=== PATIENT | male | born 1970 | race Hispanic/Latino ===

== ENCOUNTER 2020-08-09 12:46 | Inpatient (IN) | payer MEDICAID ==
[~2020-08-09] VITALS: Ht 167.6 cm; Wt 63.1 kg
[2020-08-09] MEDS ORDERED: SODIUM CHLORIDE 0.9% 1000ML 1,000 ML IV ONE (13:04)
[2020-08-09] MEDS ORDERED: ZOSYN 3.375GM+NS 50ML 50 ML IV ONE (13:04)
[2020-08-09 13:28] LABS: BASOPHILS % (AUTO) 0.6 % (0.0-5.0); EOSINOPHILS % (AUTO) 9.7 % (0.0-8.0); LYMPHOCYTES % (AUTO) 35.9 % (21.0-51.0); MEAN CORPUSCULAR HGB CONC 32.9 g/dL (32.0-36.0); MEAN CORPUSCULAR VOLUME 85.4 fL (79-99); MONOCYTES % (AUTO) 7.4 % (3.0-13.0); NEUTROPHILS % (AUTO) 46.1 % (40.0-77.0); PLATELET COUNT (AUTO) 334 K/uL (130-400); RED BLOOD CELL COUNT(AUTO) 3.28 MIL/uL (4.50-6.20); RED CELL DISTRIBUTION WIDTH 15.1 % (11.0-15.5); WHITE BLOOD COUNT (AUTO) 9.9 K/uL (4.8-10.8)
[2020-08-09] MEDS ORDERED: DEXTROSE 50%-WATER 50 ML DISP.SYRIN IV PRN ×2 (14:15→15:00)
[2020-08-09] MEDS ORDERED: GLUCAGON 1MG KIT 1 MG ML IM PRN ×2 (14:15→15:00)
[2020-08-09] MEDS ORDERED: ACETAMINOPHEN 325 MG TAB PO PRN (14:15)
[2020-08-09] MEDS ORDERED: ONDANSETRON HCL 4 MG/2 ML VIAL IVP PRN (14:15)
[2020-08-09 14:16] LABS: INR 0.92 (0.85-1.15); PARTIAL THROMBOPLASTIN TIME 28.4 SEC (26.3-35.5)
[2020-08-09 14:19] LABS: ALANINE AMINOTRANSFERASE 30 U/L (12-78); ALBUMIN 2.8 g/dL (3.5-5.0); ASPARTATE AMINOTRANSFERASE 19 U/L (10-37); BILIRUBIN,TOTAL 0.2 mg/dL (0.2-1.0); CARBON DIOXIDE 30 mmol/L (21-32); CHLORIDE 95 mmol/L (101-111); CREATINE KINASE, TOTAL 108 U/L (21-232); CREATININE 1.1 mg/dL (0.5-1.5); GLOMERULAR FILTR. RATE CALC 76 mL/min (>60); MYOGLOBIN 49 ng/mL (10-92); POTASSIUM 4.3 mmol/L (3.5-5.1); SODIUM SERUM 132 mmol/L (136-145); TOTAL PROTEIN, SERUM 7.7 g/dL (6.0-8.3); TROPONIN I < 0.04 ng/mL (0.00-0.06); UREA NITROGEN, BLOOD 22 mg/dL (7-18)
[2020-08-09 14:24] LABS: GLUCOSE,RANDOM 412 mg/dL (70-105)
[2020-08-09] MEDS ORDERED: INSULIN HUMULIN R 100 UNIT/ML 3ML ONE (14:41)
[2020-08-09] MEDS ORDERED: MORPHINE SULFATE 2 MG/ML 1ML SYG ONE (14:56)
[2020-08-09 15:54] LABS: APPEARANCE,URINE Clear (CLEAR); BILIRUBIN,URINE Negative (NEGATIVE); COLOR,URINE Yellow (YELLOW); GLUCOSE, URINE (UA) >=1000 mg/dL (NEGATIVE); KETONES,URINE Negative (NEGATIVE); LEUKOCYTE ESTERASE ,URINE Negative (NEGATIVE); NITRATE,URINE Negative (NEGATIVE); OCCULT BLOOD,URINE Negative (NEGATIVE); PROTEIN,URINE POS 1+ mg/dL (NEGATIVE); UROBILINOGEN,URINE 0.2 mg/dL (0.2-1.0)
[2020-08-09 16:14] LABS: BACTERIA,URINE Rare /HPF (None Seen); RBC,URINE 0-1 /HPF (0-1); SQUAMOUS EPITHELIAL CELL,UR Rare /HPF (0-2); WBC,URINE 0-1 /HPF (0-1)
[2020-08-09] MEDS: INSULIN HUMULIN R 100 UNIT/ML 3ML SQ SCH ×2 (16:30→20:15)
[2020-08-09] MEDS ORDERED: INSULIN HUMULIN R 100 UNIT/ML 3ML SQ SCH (16:30)
[2020-08-09] MEDS: VANCOMYCIN 1GM+NS 250ML 250 ML IV SCH (17:36)
[2020-08-09 18:26] VITALS: BP 100/70
[2020-08-09] MEDS: FAMOTIDINE 20MG TAB 20 MG TAB PO SCH (20:11)
[2020-08-09] MEDS: ACETAMINOPHEN-CODEINE 300/30MG TAB PO PRN (20:15)
[2020-08-09] MEDS: ZOSYN 3.375GM+NS 50ML 50 ML IV SCH (20:15)
[2020-08-09 20:44] VITALS: BP 97/54
[2020-08-09] MEDS: MORPHINE SULFATE 2 MG/ML 1ML SYG IVP PRN (22:11)
[2020-08-10] VITALS (7 sets, daily range): BP systolic 102–145; BP diastolic 62–88
[2020-08-10] MEDS: MORPHINE SULFATE 2 MG/ML 1ML SYG IVP PRN ×4 (02:58→23:09)
[2020-08-10] MEDS: ZOSYN 3.375GM+NS 50ML 50 ML IV SCH ×3 (04:10→21:22)
[2020-08-10 06:14] LABS: EOSINOPHILS % (AUTO) 8.9 % (0.0-8.0); HEMATOCRIT 28.9 % (42-54); LYMPHOCYTES % (AUTO) 24.8 % (21.0-51.0); MEAN CORPUSCULAR HEMOGLOBIN 28.4 pg (27.0-33.0); MEAN CORPUSCULAR HGB CONC 33.2 g/dL (32.0-36.0); MEAN CORPUSCULAR VOLUME 85.5 fL (79-99); MONOCYTES % (AUTO) 7.5 % (3.0-13.0); NEUTROPHILS % (AUTO) 57.5 % (40.0-77.0); PLATELET COUNT (AUTO) 336 K/uL (130-400); RED BLOOD CELL COUNT(AUTO) 3.38 MIL/uL (4.50-6.20); RED CELL DISTRIBUTION WIDTH 15.2 % (11.0-15.5); WHITE BLOOD COUNT (AUTO) 11.5 K/uL (4.8-10.8)
[2020-08-10] MEDS: INSULIN HUMULIN R 100 UNIT/ML 3ML SQ SCH ×4 (06:18→21:00)
[2020-08-10 07:00] LABS: CREATININE 0.9 mg/dL (0.5-1.5); POTASSIUM 4.7 mmol/L (3.5-5.1)
[2020-08-10] MEDS: ACETAMINOPHEN-CODEINE 300/30MG TAB PO PRN ×2 (09:48→21:21)
[2020-08-10] MEDS: FAMOTIDINE 20MG TAB 20 MG TAB PO SCH ×2 (09:49→21:20)
[2020-08-10] MEDS: ENOXAPARIN SODIUM 30 MG/0.3 ML SQ SCH (09:50)
[2020-08-10] MEDS: VANCOMYCIN 1GM+NS 250ML 250 ML IV SCH (12:26)
[2020-08-10 13:10] LABS: HEMOGLOBIN A1C 9.5 % (4.0-6.0)
[2020-08-10] MEDS ORDERED: VANCOMYCIN PROTOCOL PER PHARMACY IV SCH (17:45)
[2020-08-10 17:50] LABS: THYROID STIMULATING HORMONE 7.14 uIU/mL (0.36-3.74)
--- NOTE | 2020-08-10 18:04 | NUR ---
cm note met with patient and states resides at home with mother, rt kang, and now with Lt foot ulcer/gangrene/ suspect osteomyelitis. pt with hx of pt uses primarily w/c , states no other dme. has provider 4 1/2hrs daily. dc plan is back home at me. discussed poss snf referral. pt states not sure if he wants to go to any snf. Addendum: 08/10/20 at 1810 by KRUPA PUGH CM Amended: Links added.
[2020-08-10] MEDS ORDERED: VANCOMYCIN 2 GM in SODIUM CHLORIDE 0.9% 500ML 500 ML IV SCH (18:12)
[2020-08-10] MEDS ORDERED: GABA-529 PO (22:10)
[2020-08-10] MEDS ORDERED: LINA5TAB PO (22:12)
[2020-08-10] MEDS ORDERED: LEVO175T9 PO (22:12)
[2020-08-10] MEDS ORDERED: CLOP75TA14 PO (22:13)
[2020-08-10] MEDS ORDERED: DULO60CA64 PO (22:13)
[2020-08-10] MEDS ORDERED: DOCU100C33 PO (22:14)
[2020-08-10] MEDS ORDERED: ASPI-1197 PO (22:15)
[2020-08-10] MEDS ORDERED: PANT40TA54 PO (22:15)
[2020-08-11] VITALS (25 sets, daily range): BP systolic 104–142; BP diastolic 58–74
[2020-08-11] MEDS: ZOSYN 3.375GM+NS 50ML 50 ML IV SCH ×4 (04:29→21:14)
[2020-08-11] MEDS: MORPHINE SULFATE 2 MG/ML 1ML SYG IVP PRN ×3 (04:30→21:14)
[2020-08-11 05:09] LABS: BASOPHILS % (AUTO) 0.8 % (0.0-5.0); EOSINOPHILS % (AUTO) 8.1 % (0.0-8.0); HEMATOCRIT 32.8 % (42-54); LYMPHOCYTES % (AUTO) 38.6 % (21.0-51.0); MEAN CORPUSCULAR HEMOGLOBIN 27.9 pg (27.0-33.0); MEAN CORPUSCULAR HGB CONC 31.7 g/dL (32.0-36.0); MEAN CORPUSCULAR VOLUME 87.9 fL (79-99); MONOCYTES % (AUTO) 6.3 % (3.0-13.0); NEUTROPHILS % (AUTO) 45.9 % (40.0-77.0); PLATELET COUNT (AUTO) 390 K/uL (130-400); RED BLOOD CELL COUNT(AUTO) 3.73 MIL/uL (4.50-6.20); RED CELL DISTRIBUTION WIDTH 15.5 % (11.0-15.5); WHITE BLOOD COUNT (AUTO) 11.9 K/uL (4.8-10.8)
[2020-08-11 05:33] LABS: CREATININE 0.9 mg/dL (0.5-1.5)
[2020-08-11] MEDS: INSULIN HUMULIN R 100 UNIT/ML 3ML SQ SCH ×4 (07:30→21:22)
--- NOTE | 2020-08-11 07:45 | NUR ---
ASSESSMENT PT AAOX4 IN BED AND VS STABLE, NO COMPLAINTS OF SOB, HAS PAIN TO THE LEFT LEG. PT WILL BE GOING TO SURGERY THIS MORNING.
[2020-08-11] MEDS: ACETAMINOPHEN-CODEINE 300/30MG TAB PO PRN (07:52)
[2020-08-11] MEDS: GABAPENTIN 300 MG CAPSULE PO SCH ×3 (09:00→21:14)
[2020-08-11] MEDS: ENOXAPARIN SODIUM 30 MG/0.3 ML SQ SCH (09:00)
[2020-08-11] MEDS: DOCUSATE SODIUM 100 MG CAP PO SCH (09:00)
[2020-08-11] MEDS: ASPIRIN 81MG TAB.CHEW PO SCH (09:00)
[2020-08-11] MEDS: ATORVASTATIN CALCIUM 20 MG TABLET PO SCH (09:00)
[2020-08-11] MEDS ORDERED: VANCOMYCIN 1.75 GM in SODIUM CHLORIDE 0.9% 250 ML IV SCH (09:00)
[2020-08-11] MEDS: DULOXETINE HCL 30 MG CAP PO SCH (09:00)
[2020-08-11] MEDS: PANTOPRAZOLE SODIUM 40 MG TABLET.DR PO SCH (09:00)
[2020-08-11] MEDS: LEVOTHYROXINE 50 MCG TABLET PO SCH (09:00)
[2020-08-11] MEDS: CLOPIDOGREL BISULFATE 75 MG TAB PO SCH (09:00)
--- NOTE | 2020-08-11 09:20 | NUR ---
ROUNDING PT LEFT FOR OR FOR LEFT LEG OR PROCEDURE
[2020-08-11] MEDS ORDERED: SODIUM CHLORIDE 0.9% 1000ML 1,000 ML IV ONE (09:26)
--- NOTE | 2020-08-11 09:30 | NUR ---
preop pt transferred to holding via bed. pt in no distress. pt has dressing to left foot clean and dry. will continue to monitor pt
[2020-08-11] MEDS ORDERED: LIDOCAINE PF 2% 5ML ABBOJECT ONE (10:14)
[2020-08-11] MEDS ORDERED: ONDANSETRON HCL 4 MG/2 ML VIAL ONE (10:14)
[2020-08-11] MEDS ORDERED: ROPIVACAINE 0.5% 5MG/ML 30ML IJ ONE ×2 (10:14→10:20)
[2020-08-11] MEDS ORDERED: MIDAZOLAM HCL 1 MG/ML 2ML VIAL ONE (10:15)
[2020-08-11] MEDS ORDERED: PROPOFOL 10 MG/ML 20ML VIAL IV ONE (10:15)
[2020-08-11] MEDS ORDERED: FENTANYL CITRATE PF 50 MCG/1 ML 2ML VIAL ONE ×2 (10:15→11:56)
[2020-08-11] MEDS ORDERED: ROCURONIUM 10MG/1ML SYR 10 MG/ML ML ONE (10:15)
[2020-08-11] MEDS ORDERED: LIDOCAINE 1%-EPI 1:100,000 20 ML VIAL IJ ONE (10:21)
[2020-08-11] MEDS ORDERED: DEXAMETHASONE SOD PHOSPHATE 10MG/ML 1ML VIAL ONE (10:24)
[2020-08-11] MEDS ORDERED: COMPOUND IV REFRIGERATED 1 EACH IVSOLN MISC PRN (12:00)
[2020-08-11] MEDS ORDERED: EPHEDRINE SULFATE 50 MG/ML AMPULE ONE (12:11)
[2020-08-11] MEDS ORDERED: SODIUM CHLORIDE 0.9% 10 ML VIAL ONE (12:19)
[2020-08-11] MEDS ORDERED: PHENYLEPHRINE HCL 10 MG/ML 1ML VIAL IV ONE (12:19)
[2020-08-11] MEDS ORDERED: NEOSTIGMINE 5MG/5ML SYR IV ONE (12:56)
[2020-08-11] MEDS ORDERED: GLYCOPYRROLATE 1 MG/5 ML SYRINGE ONE (12:56)
--- NOTE | 2020-08-11 14:23 | NUR ---
POST OP PT CAME BY BED FROM OR DRESSING DRY AND INTACT VS STABLE B/P 142/74, SPO2/5 99% HR 100, PT COMPLAINING OF PAIN 07/26, WILL CALL MD TO MAKE AWARE. PT ASKING FOR AN INCREASE IN MORPHINE.
--- NOTE | 2020-08-11 14:51 | NUR ---
POST OP PT RECEIVED BY BED VS STABLE, AAOX3 DRESSING IS DRY AND INTACT. PT ASKING FOR INCREASE IN MORPHINE FOR PAIN
--- NOTE | 2020-08-11 15:05 | NUR ---
POST OP X 3 15MIN PATIENT C/O PAIN TO LEFT LOWER EXT, WILL GIVE MORPHINE ORDERED. PAIN 10/10
--- NOTE | 2020-08-11 15:20 | NUR ---
POST OP X 4 PT IN BED SLEEPING VS STABLE DRESSING DRY AND INTACT
--- NOTE | 2020-08-11 15:40 | NUR ---
POST OP X 30X 1 PT CONTINUE TO SLEEP, NO SOB, NO C/O AT THIS TIME VOICED, VS STABLE, DRESSING INTACT
--- NOTE | 2020-08-11 16:00 | NUR ---
POST OP 1 HR PT CONTINUES TO DO WELL NO COMPLAINS OF PAIN AT THIS TIME, NO SOB, PT IN BED SLEEPING, VS STABLE WILL CONTINUE TO MONITOR
--- NOTE | 2020-08-11 17:00 | NUR ---
POST OP PT LAYING BED WITH COVERS OVER HIS HEAD, NO CHANGE IN STATUS, VS STABLE DRESSING DRY AND INTACT
[2020-08-11] MEDS: KETOROLAC TROMETHAMINE 30MG/ML IV PRN (18:10)
[2020-08-12] VITALS (7 sets, daily range): BP systolic 106–140; BP diastolic 52–84
[2020-08-12] MEDS: KETOROLAC TROMETHAMINE 30MG/ML IV PRN ×4 (01:31→23:21)
[2020-08-12] MEDS: ZOSYN 3.375GM+NS 50ML 50 ML IV SCH ×3 (04:27→21:04)
[2020-08-12] MEDS: MORPHINE SULFATE 2 MG/ML 1ML SYG IVP PRN ×5 (04:27→21:11)
[2020-08-12 04:29] LABS: BASOPHILS % (AUTO) 0.4 % (0.0-5.0); EOSINOPHILS % (AUTO) 2.6 % (0.0-8.0); HEMATOCRIT 23.9 % (42-54); LYMPHOCYTES % (AUTO) 22.6 % (21.0-51.0); MEAN CORPUSCULAR HEMOGLOBIN 28.1 pg (27.0-33.0); MEAN CORPUSCULAR HGB CONC 32.2 g/dL (32.0-36.0); MEAN CORPUSCULAR VOLUME 87.2 fL (79-99); MONOCYTES % (AUTO) 6.9 % (3.0-13.0); NEUTROPHILS % (AUTO) 67.2 % (40.0-77.0); PLATELET COUNT (AUTO) 279 K/uL (130-400); RED BLOOD CELL COUNT(AUTO) 2.74 MIL/uL (4.50-6.20); RED CELL DISTRIBUTION WIDTH 15.5 % (11.0-15.5); WHITE BLOOD COUNT (AUTO) 11.9 K/uL (4.8-10.8)
[2020-08-12 04:33] LABS: CREATININE 1.1 mg/dL (0.5-1.5); POTASSIUM 4.1 mmol/L (3.5-5.1)
[2020-08-12] MEDS: VANCOMYCIN 1GM+NS 250ML 250 ML IV SCH ×2 (05:25→18:08)
[2020-08-12] MEDS: INSULIN HUMULIN R 100 UNIT/ML 3ML SQ SCH ×4 (05:29→21:09)
--- NOTE | 2020-08-12 07:53 | NUR ---
DR. PIÑA, Yoanna PIÑA CAME TO SEE PT AT BEDSIDE.
[2020-08-12] MEDS: ASPIRIN 81MG TAB.CHEW PO SCH (08:15)
[2020-08-12] MEDS: DOCUSATE SODIUM 100 MG CAP PO SCH (08:15)
[2020-08-12] MEDS: CLOPIDOGREL BISULFATE 75 MG TAB PO SCH (08:15)
[2020-08-12] MEDS: DULOXETINE HCL 30 MG CAP PO SCH (08:16)
[2020-08-12] MEDS: ATORVASTATIN CALCIUM 20 MG TABLET PO SCH (08:16)
[2020-08-12] MEDS: ENOXAPARIN SODIUM 30 MG/0.3 ML SQ SCH (08:17)
[2020-08-12] MEDS: PANTOPRAZOLE SODIUM 40 MG TABLET.DR PO SCH (08:17)
[2020-08-12] MEDS: LEVOTHYROXINE 50 MCG TABLET PO SCH (08:20)
[2020-08-12] MEDS: GABAPENTIN 300 MG CAPSULE PO SCH ×3 (08:20→21:04)
[2020-08-12] MEDS ORDERED: HYDROCODONE/ACETAMINOPHEN 5/325 MG TAB PO PRN (11:45)
[2020-08-13] MEDS: MORPHINE SULFATE 2 MG/ML 1ML SYG IVP PRN ×6 (01:03→21:00)
--- NOTE | 2020-08-13 01:26 | NUR ---
PAIN Pt appears calm,medicated as per E Dec.he states he constantly has pain to his Left Bka site.
[2020-08-13] MEDS: ZOSYN 3.375GM+NS 50ML 50 ML IV SCH ×4 (03:07→20:59)
--- NOTE | 2020-08-13 03:11 | NUR ---
MAX Martinez Np re pt.s complaints of pain.PAIN MEDS NOT DUE RIGHT NOW.HE SAID HE'S IN AOT OF PAIN. Addendum: 08/13/20 at 0429 by GUMARO MILLER RN RN HE REFUSED BENJAMIN.
[2020-08-13] MEDS ORDERED: MORPHINE SULFATE 2 MG/ML 1ML SYG IVP ONE (03:15)
--- NOTE | 2020-08-13 03:17 | NUR ---
morphine extra morphine 2 mg iv given as per DOOR CUTTER order.
[2020-08-13 04:00] VITALS: BP 126/83
--- NOTE | 2020-08-13 04:28 | NUR ---
ASLEEP Pt sleeping this time,no signs of pain noted.
[2020-08-13] MEDS: INSULIN HUMULIN R 100 UNIT/ML 3ML SQ SCH ×4 (05:25→21:11)
[2020-08-13] MEDS: LEVOTHYROXINE 50 MCG TABLET PO SCH (06:11)
[2020-08-13] MEDS: VANCOMYCIN 1GM+NS 250ML 250 ML IV SCH ×2 (06:11→21:52)
[2020-08-13 06:12] LABS: HEMATOCRIT 25.7 % (42-54)
[2020-08-13 08:07] VITALS: BP 136/81
[2020-08-13] MEDS: KETOROLAC TROMETHAMINE 30MG/ML IV PRN ×3 (08:08→17:29)
[2020-08-13] MEDS: DOCUSATE SODIUM 100 MG CAP PO SCH (09:00)
[2020-08-13] MEDS: PANTOPRAZOLE SODIUM 40 MG TABLET.DR PO SCH (10:05)
[2020-08-13] MEDS: DULOXETINE HCL 30 MG CAP PO SCH (10:05)
[2020-08-13] MEDS: ASPIRIN 81MG TAB.CHEW PO SCH (10:05)
[2020-08-13] MEDS: ENOXAPARIN SODIUM 30 MG/0.3 ML SQ SCH (10:06)
[2020-08-13] MEDS: CLOPIDOGREL BISULFATE 75 MG TAB PO SCH (10:06)
[2020-08-13] MEDS: ATORVASTATIN CALCIUM 20 MG TABLET PO SCH (10:06)
[2020-08-13] MEDS: GABAPENTIN 300 MG CAPSULE PO SCH ×3 (10:10→20:58)
[2020-08-13 11:35] VITALS: BP 139/83
--- NOTE | 2020-08-13 16:02 | NUR ---
RD NOTIFICATION Pt admitted for LLE infected wound, Possible osteomyelitis, , uncontrolled DM. Pt tolerating Heart Healthy, 75gm CC diet order with no report of GI distress, Good PO intake at 100%. Pt reports hunger after meals. Food preferences updated, Recommend offer snacks between meal times and modify non-carbohydrate meal portions. Pt with Non-healing ulcer to the Lower left extremity;Recommend Maynor BID, 50mg Vitamin C BID, 220mg Zinc QD for wound healing support. Pt was provided nutrition education for wound healing support and Diabetes. Increased nutritional needs secondary to wound healing. Pt is at appropriate BMI for age. Elevated BG levels at 225; Pt reports high blood sugars even without eating. Pt has had foot infection for quite some time and does not confess to eating improperly, although Pt dislikes most cooked vegetables. Recommend Maynor BID, 50mg Vitamin C BID, 220mg Zinc QD for wound healing support. Recommend offer snacks between meal times and modify non-carbohydrate meal portions Nutrition education for Wound healing support and Diabetes provided. RD to continue to monitor. Please notify as additional nutrition concerns arise. Thank you.
--- NOTE | 2020-08-13 16:13 | NUR ---
NUTRITION EDUCATION RD provided nutrition education for Diabetes and Wound healing support. Pt was somewhat engaged and demonstrated listening comprehension, however Pt discussion goes off topic due to limitations at home (i.e. caring for mother, not receiving assistance from brother, time in snf, etc). Pt admits first time to receiving Diabetes nutrition education, however does not attribute elevated BG levels to diet. Pt shows some signs of noncompliance. Pt reports constant hunger. Reinforcement education recommended. RD to follow up. Addendum: 08/13/20 at [address] RD Amended: Links added.
[2020-08-13 16:21] VITALS: BP 123/77
[2020-08-13 20:00] VITALS: BP 133/82
[2020-08-13 23:57] VITALS: BP 119/79
[2020-08-14] MEDS: MORPHINE SULFATE 2 MG/ML 1ML SYG IVP PRN ×5 (01:36→22:17)
[2020-08-14] MEDS: KETOROLAC TROMETHAMINE 30MG/ML IV PRN (03:39)
[2020-08-14 04:00] VITALS: BP 137/89
[2020-08-14 04:21] LABS: HEMATOCRIT 26.3 % (42-54)
[2020-08-14 04:40] LABS: CREATININE 0.9 mg/dL (0.5-1.5); POTASSIUM 4.5 mmol/L (3.5-5.1)
[2020-08-14] MEDS: VANCOMYCIN 1GM+NS 250ML 250 ML IV SCH (05:53)
[2020-08-14] MEDS: ZOSYN 3.375GM+NS 50ML 50 ML IV SCH ×2 (05:53→12:56)
[2020-08-14] MEDS: INSULIN HUMULIN R 100 UNIT/ML 3ML SQ SCH ×7 (06:05→22:19)
[2020-08-14] MEDS ORDERED: INSULIN GLARGINE 100 UNITS/ML 10 ML VIAL SQ SCH (07:00)
[2020-08-14 07:30] VITALS: BP 141/87
[2020-08-14] MEDS ORDERED: PHARMACY COMMUNICATION MISC SCH (07:45)
[2020-08-14] MEDS: LEVOTHYROXINE 50 MCG TABLET PO SCH (09:00)
[2020-08-14] MEDS: ENOXAPARIN SODIUM 30 MG/0.3 ML SQ SCH (09:00)
[2020-08-14] MEDS: ASPIRIN 81MG TAB.CHEW PO SCH (09:04)
[2020-08-14] MEDS: DULOXETINE HCL 30 MG CAP PO SCH (09:04)
[2020-08-14] MEDS: ATORVASTATIN CALCIUM 20 MG TABLET PO SCH (09:04)
[2020-08-14] MEDS: PANTOPRAZOLE SODIUM 40 MG TABLET.DR PO SCH (09:05)
[2020-08-14] MEDS: GABAPENTIN 300 MG CAPSULE PO SCH ×3 (09:05→21:09)
[2020-08-14] MEDS: CLOPIDOGREL BISULFATE 75 MG TAB PO SCH (09:05)
[2020-08-14] MEDS: HYDROCODONE/ACETAMINOPHEN 7.5/325 MG TAB PO PRN (09:08)
[2020-08-14] MEDS: DOCUSATE SODIUM 100 MG CAP PO SCH (09:14)
[2020-08-14 11:00] VITALS: BP 124/79
[2020-08-14] MEDS ORDERED: KETOROLAC TROMETHAMINE 15MG/ML IM PRN (11:30)
[2020-08-14] MEDS ORDERED: KETOROLAC TROMETHAMINE 30MG/ML ONE (14:31)
[2020-08-14 16:00] VITALS: BP 133/78
[2020-08-14 20:34] VITALS: BP 127/84
[2020-08-14] MEDS: KETOROLAC TROMETHAMINE 15MG/ML IV PRN (21:09)
[2020-08-14 23:42] VITALS: BP 131/82
[2020-08-15] MEDS: HYDROCODONE/ACETAMINOPHEN 7.5/325 MG TAB PO PRN ×2 (01:12→14:25)
--- NOTE | 2020-08-15 01:26 | NUR ---
PAIN TO LEFT LOWER EXTREMITY. ADMIN MEDICATION PER DEC. PT REQUESTING TO GET MORPHINE WELL. INSTRUCTED THAT THE MORPHINE IS NOT AVAILABLE TO ADMIN, MED IS AVAILABLE EVERY FOUR HOURS AND IT'S TOO SOON. PT VERBALIZED UNDERSTANDING- REPORTS THAT HE WILL NOT SLEEP UNTIL HE GETS HIS MORPHINE.
[2020-08-15] MEDS: MORPHINE SULFATE 2 MG/ML 1ML SYG IVP PRN ×5 (02:07→20:17)
[2020-08-15 04:34] VITALS: BP 131/80
[2020-08-15 05:46] LABS: CREATININE 0.9 mg/dL (0.5-1.5); MAGNESIUM 2.1 mg/dL (1.80-2.40); POTASSIUM 4.7 mmol/L (3.5-5.1)
[2020-08-15] MEDS: INSULIN GLARGINE 100 UNITS/ML 10 ML VIAL SQ SCH (06:23)
[2020-08-15] MEDS: INSULIN HUMULIN R 100 UNIT/ML 3ML SQ SCH ×8 (06:23→21:00)
[2020-08-15] MEDS: KETOROLAC TROMETHAMINE 15MG/ML IV PRN (06:26)
[2020-08-15 08:00] VITALS: BP 125/76
[2020-08-15] MEDS: PANTOPRAZOLE SODIUM 40 MG TABLET.DR PO SCH (08:00)
[2020-08-15] MEDS: DULOXETINE HCL 30 MG CAP PO SCH (08:01)
[2020-08-15] MEDS: ASPIRIN 81MG TAB.CHEW PO SCH (08:01)
[2020-08-15] MEDS: ATORVASTATIN CALCIUM 20 MG TABLET PO SCH (08:01)
[2020-08-15] MEDS: CLOPIDOGREL BISULFATE 75 MG TAB PO SCH (08:01)
[2020-08-15] MEDS: DOCUSATE SODIUM 100 MG CAP PO SCH (08:01)
[2020-08-15] MEDS: LEVOTHYROXINE 50 MCG TABLET PO SCH (08:02)
[2020-08-15] MEDS: ENOXAPARIN SODIUM 30 MG/0.3 ML SQ SCH (08:02)
[2020-08-15] MEDS: GABAPENTIN 300 MG CAPSULE PO SCH ×3 (08:14→20:12)
[2020-08-15 11:28] VITALS: BP 125/71
[2020-08-15 16:00] VITALS: BP 128/73
[2020-08-15 19:42] VITALS: BP 120/86
[2020-08-15 23:26] VITALS: BP 123/84
[2020-08-16] MEDS: MORPHINE SULFATE 2 MG/ML 1ML SYG IVP PRN ×4 (00:04→17:55)
[2020-08-16] MEDS ORDERED: KETOROLAC TROMETHAMINE 15MG/ML IM PRN (02:00)
[2020-08-16] MEDS ORDERED: KETOROLAC TROMETHAMINE 15MG/ML ONE ×2 (02:03→11:54)
[2020-08-16 03:36] VITALS: BP 131/83
[2020-08-16] MEDS: INSULIN HUMULIN R 100 UNIT/ML 3ML SQ SCH ×7 (07:18→21:09)
[2020-08-16] MEDS: INSULIN GLARGINE 100 UNITS/ML 10 ML VIAL SQ SCH (07:25)
[2020-08-16 07:42] VITALS: BP 112/78
[2020-08-16] MEDS: ATORVASTATIN CALCIUM 20 MG TABLET PO SCH (08:39)
[2020-08-16] MEDS: ASPIRIN 81MG TAB.CHEW PO SCH (08:39)
[2020-08-16] MEDS: LEVOTHYROXINE 50 MCG TABLET PO SCH (08:39)
[2020-08-16] MEDS: PANTOPRAZOLE SODIUM 40 MG TABLET.DR PO SCH (08:40)
[2020-08-16] MEDS: DOCUSATE SODIUM 100 MG CAP PO SCH (08:40)
[2020-08-16] MEDS: CLOPIDOGREL BISULFATE 75 MG TAB PO SCH (08:40)
[2020-08-16] MEDS: GABAPENTIN 300 MG CAPSULE PO SCH ×3 (08:40→21:00)
[2020-08-16] MEDS: DULOXETINE HCL 30 MG CAP PO SCH (08:40)
[2020-08-16] MEDS: ENOXAPARIN SODIUM 30 MG/0.3 ML SQ SCH (08:41)
[2020-08-16 11:30] VITALS: BP 117/74
[2020-08-16] MEDS ORDERED: KETOROLAC TROMETHAMINE 15MG/ML IV PRN (14:00)
[2020-08-16 16:00] VITALS: BP 117/65
[2020-08-16] MEDS: HYDROCODONE/ACETAMINOPHEN 7.5/325 MG TAB PO PRN (16:04)
[2020-08-16 19:00] VITALS: BP 98/62
[2020-08-17 00:06] VITALS: BP 101/67
[2020-08-17] MEDS: MORPHINE SULFATE 2 MG/ML 1ML SYG IVP PRN ×5 (00:50→20:32)
[2020-08-17] MEDS: HYDROCODONE/ACETAMINOPHEN 7.5/325 MG TAB PO PRN ×2 (02:51→14:26)
[2020-08-17 05:59] LABS: HEMATOCRIT 24.7 % (42-54)
[2020-08-17] MEDS: INSULIN HUMULIN R 100 UNIT/ML 3ML SQ SCH ×8 (06:08→21:00)
[2020-08-17] MEDS: INSULIN GLARGINE 100 UNITS/ML 10 ML VIAL SQ SCH (06:12)
[2020-08-17 06:17] VITALS: BP 118/74
[2020-08-17 06:19] LABS: CREATININE 0.8 mg/dL (0.5-1.5)
[2020-08-17 08:00] VITALS: BP 114/52
[2020-08-17] MEDS: ASPIRIN 81MG TAB.CHEW PO SCH (08:27)
[2020-08-17] MEDS: LEVOTHYROXINE 50 MCG TABLET PO SCH (08:27)
[2020-08-17] MEDS: GABAPENTIN 300 MG CAPSULE PO SCH ×3 (08:28→20:32)
[2020-08-17] MEDS: DOCUSATE SODIUM 100 MG CAP PO SCH (08:28)
[2020-08-17] MEDS: DULOXETINE HCL 30 MG CAP PO SCH (08:29)
[2020-08-17] MEDS: CLOPIDOGREL BISULFATE 75 MG TAB PO SCH (08:29)
[2020-08-17] MEDS: PANTOPRAZOLE SODIUM 40 MG TABLET.DR PO SCH (08:29)
[2020-08-17] MEDS: ATORVASTATIN CALCIUM 20 MG TABLET PO SCH (08:29)
[2020-08-17] MEDS: ENOXAPARIN SODIUM 30 MG/0.3 ML SQ SCH (08:30)
[2020-08-17 11:58] VITALS: BP 125/81
[2020-08-17 16:00] VITALS: BP 136/60
[2020-08-17] MEDS ORDERED: COMPOUND IV MISC 1 EACH IVSOLN MISC PRN (17:45)
[2020-08-17 19:00] VITALS: BP 115/67
[2020-08-17] MEDS: IRON SUCROSE COMPLEX 100 MG in SODIUM CHLORIDE 0.9% 50 ML IV SCH (20:33)
[2020-08-18] VITALS (7 sets, daily range): BP systolic 113–135; BP diastolic 71–83
[2020-08-18] MEDS: MORPHINE SULFATE 2 MG/ML 1ML SYG IVP PRN ×6 (00:15→22:53)
[2020-08-18] MEDS: HYDROCODONE/ACETAMINOPHEN 7.5/325 MG TAB PO PRN ×3 (01:17→21:05)
--- NOTE | 2020-08-18 05:15 | NUR ---
PT REFUSING BLOOD SUGAR CHECK. CANNOT ADMINISTER INSULIN.
[2020-08-18] MEDS: INSULIN GLARGINE 100 UNITS/ML 10 ML VIAL SQ SCH (06:34)
[2020-08-18] MEDS: INSULIN HUMULIN R 100 UNIT/ML 3ML SQ SCH ×7 (06:35→20:22)
--- NOTE | 2020-08-18 08:36 | NUR ---
DR STEWART SAW PT AND INFORMED HIM ON THE IMPORTANCE OF TAKING INSULIN PRESCRIBED. DR STEWART WAS MADE AWARE THAT PT REFUSED BS CHECK AND INSULIN THIS AM. WILL CONTINUE TO MONITOR PT.
[2020-08-18] MEDS: LEVOTHYROXINE 50 MCG TABLET PO SCH (10:05)
[2020-08-18] MEDS: ASPIRIN 81MG TAB.CHEW PO SCH (10:05)
[2020-08-18] MEDS: DULOXETINE HCL 30 MG CAP PO SCH (10:05)
[2020-08-18] MEDS: GABAPENTIN 300 MG CAPSULE PO SCH ×3 (10:06→20:24)
[2020-08-18] MEDS: ATORVASTATIN CALCIUM 20 MG TABLET PO SCH (10:06)
[2020-08-18] MEDS: DOCUSATE SODIUM 100 MG CAP PO SCH (10:06)
[2020-08-18] MEDS: CLOPIDOGREL BISULFATE 75 MG TAB PO SCH (10:06)
[2020-08-18] MEDS: PANTOPRAZOLE SODIUM 40 MG TABLET.DR PO SCH (10:07)
[2020-08-18] MEDS: ENOXAPARIN SODIUM 30 MG/0.3 ML SQ SCH (10:08)
[2020-08-18 10:18] LABS: HEMATOCRIT 25.4 % (42-54)
--- NOTE | 2020-08-18 15:40 | NUR ---
RD FOLLOW UP Pt continues with Good PO intake, tolerating Heart Healthy, 75gm CCD. S/p Left leg amputation. Pt with no GI distress. Pt reports not getting foods he wants. RD explained due to diet restrictions and elevated blood sugars. Pt still complains of pain. Pt drinks Glucerna. Colace, Morphine, Iron Sucrose, Humulin R, Lipitor medications in place. Pt now requesting Diabetes nutrition education. Recommend modify diet order to 60gm CCD RD to follow up with Nutrition handout RD to continue to monitor. Please notify as additional nutrition concerns arise. Thank you.
[2020-08-18] MEDS: IRON SUCROSE COMPLEX 100 MG in SODIUM CHLORIDE 0.9% 50 ML IV SCH (20:24)
--- NOTE | 2020-08-18 23:11 | NUR ---
dressing on left leg changed with betadine, saline, vaseline gauze, kerlex, patient has incision with bonny with minimal serous drainage. no issues.
[2020-08-19] MEDS: MORPHINE SULFATE 2 MG/ML 1ML SYG IVP PRN ×4 (03:04→15:35)
[2020-08-19 03:49] VITALS: BP 110/78
[2020-08-19 05:47] LABS: BASOPHILS % (AUTO) 0.7 % (0.0-5.0); EOSINOPHILS % (AUTO) 6.5 % (0.0-8.0); LYMPHOCYTES % (AUTO) 34.7 % (21.0-51.0); MEAN CORPUSCULAR HEMOGLOBIN 27.5 pg (27.0-33.0); MEAN CORPUSCULAR HGB CONC 32.2 g/dL (32.0-36.0); MEAN CORPUSCULAR VOLUME 85.4 fL (79-99); MONOCYTES % (AUTO) 10.7 % (3.0-13.0); NEUTROPHILS % (AUTO) 47.2 % (40.0-77.0); PLATELET COUNT (AUTO) 419 K/uL (130-400); RED BLOOD CELL COUNT(AUTO) 3.16 MIL/uL (4.50-6.20); RED CELL DISTRIBUTION WIDTH 13.9 % (11.0-15.5); WHITE BLOOD COUNT (AUTO) 9.4 K/uL (4.8-10.8)
[2020-08-19] MEDS: INSULIN GLARGINE 100 UNITS/ML 10 ML VIAL SQ SCH (05:47)
[2020-08-19] MEDS: INSULIN HUMULIN R 100 UNIT/ML 3ML SQ SCH ×4 (05:47→12:41)
[2020-08-19 08:37] VITALS: BP 119/81
[2020-08-19] MEDS: ATORVASTATIN CALCIUM 20 MG TABLET PO SCH (10:51)
[2020-08-19] MEDS: DOCUSATE SODIUM 100 MG CAP PO SCH (10:52)
[2020-08-19] MEDS: PANTOPRAZOLE SODIUM 40 MG TABLET.DR PO SCH (10:52)
[2020-08-19] MEDS: GABAPENTIN 300 MG CAPSULE PO SCH ×2 (10:53→15:33)
[2020-08-19] MEDS: DULOXETINE HCL 30 MG CAP PO SCH (10:53)
[2020-08-19] MEDS: LEVOTHYROXINE 50 MCG TABLET PO SCH (10:55)
[2020-08-19] MEDS: CLOPIDOGREL BISULFATE 75 MG TAB PO SCH (10:56)
[2020-08-19] MEDS: ASPIRIN 81MG TAB.CHEW PO SCH (10:56)
[2020-08-19] MEDS: ENOXAPARIN SODIUM 30 MG/0.3 ML SQ SCH (10:57)
[2020-08-19 11:28] VITALS: BP 121/72
[2020-08-19] MEDS: HYDROCODONE/ACETAMINOPHEN 7.5/325 MG TAB PO PRN (12:33)
--- NOTE | 2020-08-19 15:38 | NUR ---
NUTRITION EDUCATION RD follow for nutrition education. Pt receptive of Diabetes Nutrition education today. Pt seems to half listen and really just wants to talk and be heard. RD was able to re-direct multiple times and re-emphasize diet recommendations Pt willing to comply with. Compliance is uncertain but Pt says handouts were helpful and will have family members to read them as well. Addendum: 08/19/20 at [address] RD Amended: Links added.
[2020-08-19] MEDS ORDERED: MORPHINE SULFATE 2 MG/ML 1ML SYG IVP PRN (15:45)
--- NOTE | 2020-08-19 16:50 | NUR ---
PT STATED HE WAS READY TO GO HOME THAT HE HAD AN EMERGENCY AT HOME THAT HE HAD TO ATTEND. DR SIDHU WAS NOTIFIED AND STATED THAT HE RECOMMENDS THAT THE PT STAYS UNTIL TOMORROW AND WITH POSSIBLY GO HOME TOMORROW DUE TO PT WAS STILL RECEIVING MORPHINE EVERY 4 HRS. I EXPLAINED TO PT THAT THE DR WANTED TO MONITOR HIM FOR ONE MORE DAY PT INSISTED IN LEAVING THAT HE HAD ALREADY MADE UP HIS MIND AND CALLED HIS RIDE. HE STATED THAT HE APPREACIATED EVERYTHING THAT EVERYONE HAS DONE FOR HIM HERE AT [facility] BUT THAT HE HAD TO GO TAKE CARE OF THINGS AT HOME. I EXPLAINED THAT IF HE WANTED TO LEAVE HE WOULD BE LEAVING AGAINST MEDICAL ADVICE AND THAT WE THE HOSPITAL AND MEDICAL STAFF WOULD NOT BE RESPONSIBLE FOR ANYTHING THAT HAPPENS IF HE DECIDED TO LEAVE AMA. I EXPLAINED THE RISKS TO HIM INCLUDING AND HE SAID HE HAS SIGNED BEFORE AND THAT HE APOLOGIZES BUT HE HAS TO GO. I INFORMED HIM THAT WE WOULD NOT BE ABLE TO GET HIM ANY PRESCRIPTION FOR PAIN NOR MAKE ANY F/U APPTS HE VERBALIZED UNDERSTANDING. IV WAS REMOVED, TIP INTACT. DR SIDHU, CHARGE JOY AND GONZALEZ WERE MADE AWARE. PT SIGNED AMA FORM AND THANKED US AGAIN. PT WAS WHEELED DOWN ,,FAMILY WAS WAITING.
[2020-08-19 17:08] VITALS: BP 118/73
--- NOTE | 2020-08-19 17:35 | NUR ---
Notified Dr. Correa, Dr. Vogel, Dr. Chong, and Gerry De La O (Dr. Lira's PA) that pt has left AMA.
== END 2020-08-19 17:15 | disposition left against medical advice (07) | DRG 305 ==
LOC: EDH 12:46 → EDHIP 12:47 → 3CH 16:48
PROVIDERS: ADMIT Hospitalist; ATTEND Hospitalist
PROC: 0Y6J0Z1 Detachment at Left Lower Leg, High, Open Approach (ICD-10-PCS; principal; 2020-08-11 11:54)
DX: E11.69 Type 2 diabetes mellitus with other specified complication (principal); L03.116 Cellulitis of left lower limb; L97.429 Non-pressure chronic ulcer of left heel and midfoot with unspecified severity; E11.65 Type 2 diabetes mellitus with hyperglycemia; E11.52 Type 2 diabetes mellitus with diabetic peripheral angiopathy with gangrene; E11.42 Type 2 diabetes mellitus with diabetic polyneuropathy; M86.8X7 Other osteomyelitis, ankle and foot; E03.9 Hypothyroidism, unspecified; D62 Acute posthemorrhagic anemia; Z53.29 Procedure and treatment not carried out because of patient's decision for other reasons; E11.22 Type 2 diabetes mellitus with diabetic chronic kidney disease; E11.621 Type 2 diabetes mellitus with foot ulcer; I96 Gangrene, not elsewhere classified; G89.29 Other chronic pain; I12.9 Hypertensive chronic kidney disease with stage 1 through stage 4 chronic kidney disease, or unspecified chronic kidney disease; J18.9 Pneumonia, unspecified organism; L97.329 Non-pressure chronic ulcer of left ankle with unspecified severity; N18.9 Chronic kidney disease, unspecified; Z79.4 Long term (current) use of insulin; Z83.3 Family history of diabetes mellitus; Z91.14 Patient's other noncompliance with medication regimen; Z91.19 Patient's noncompliance with other medical treatment and regimen; Z89.511 Acquired absence of right leg below knee
CPT/HCPCS: 36415; 71045; 73610; 73718; 73721; 80048; 80053; 80202; 81001; 82550; 82565; 82948; 83036; 83605; 83735; 83874; 84145; 84439; 84443; 84484; 85014; 85018; 85025; 85610; 85651; 85730; 86140; 86850; 86900; 86901; 87040; 87088; 93005; 93306; 97039; G0378; J1100; J1650; J1756; J1815; J1885; J2001; J2250; J2370; J2405; J2543; J2704; J2710; J2795; J3010; J3370; J3490; J7030; J7040; J7050

== ENCOUNTER 2020-08-21 22:31 | Emergency (ER) | payer MEDICAID ==
[~2020-08-21 22:31] MED LIST: ASPI-1197 PO; CLOP75TA14 PO; DOCU100C33 PO; DULO60CA64 PO; GABA-529 PO; LEVO175T9 PO; LINA5TAB PO; PANT40TA54 PO
[2020-08-21] MEDS ORDERED: KETOROLAC TROMETHAMINE 60 MG/2 ML VIAL ONE (23:54)
== END 2020-08-22 01:10 | disposition home or self-care (01) ==
LOC: EDH 22:31
DX: S80.12XA Contusion of left lower leg, initial encounter (principal); S80.11XA Contusion of right lower leg, initial encounter; I10 Essential (primary) hypertension; E08.65 Diabetes mellitus due to underlying condition with hyperglycemia; E08.42 Diabetes mellitus due to underlying condition with diabetic polyneuropathy; E78.00 Pure hypercholesterolemia, unspecified; W18.39XA Other fall on same level, initial encounter; Y93.89 Activity, other specified; Y92.098 Other place in other non-institutional residence as the place of occurrence of the external cause; Y99.8 Other external cause status
CPT/HCPCS: 73590 ×2; 96372; 99283; J1885

== ENCOUNTER 2020-09-07 00:13 | Inpatient (IN) | payer MEDICAID ==
[~2020-09-07] VITALS: Ht 167.6 cm; Wt 59.9 kg
[2020-09-08] VITALS (7 sets, daily range): BP systolic 110–147; BP diastolic 65–88
[2020-09-08] MEDS ORDERED: ACETAMINOPHEN 325 MG TAB PO PRN ×2 (01:00)
[2020-09-08] MEDS ORDERED: LACTULOSE 20 GM/30 ML UDCUP PO PRN (01:00)
[2020-09-08] MEDS ORDERED: VANCOMYCIN 1GM+NS 250ML 250 ML IV SCH (01:00)
[2020-09-08 01:32] LABS: BASOPHILS % (AUTO) 0.6 % (0.0-5.0); EOSINOPHILS % (AUTO) 3.3 % (0.0-8.0); HEMATOCRIT 26.2 % (42-54); LYMPHOCYTES % (AUTO) 25.1 % (21.0-51.0); MEAN CORPUSCULAR HEMOGLOBIN 27.7 pg (27.0-33.0); MEAN CORPUSCULAR HGB CONC 32.4 g/dL (32.0-36.0); MEAN CORPUSCULAR VOLUME 85.3 fL (79-99); NEUTROPHILS % (AUTO) 63.8 % (40.0-77.0); PLATELET COUNT (AUTO) 247 K/uL (130-400); RED BLOOD CELL COUNT(AUTO) 3.07 MIL/uL (4.50-6.20); RED CELL DISTRIBUTION WIDTH 14.1 % (11.0-15.5); WHITE BLOOD COUNT (AUTO) 10.7 K/uL (4.8-10.8)
[2020-09-08] MEDS ORDERED: VANCOMYCIN PROTOCOL PER PHARMACY IV SCH (03:00)
[2020-09-08] MEDS: MORPHINE SULFATE 2 MG/ML 1ML SYG IV PRN ×5 (04:07→21:32)
[2020-09-08 04:16] LABS: ALANINE AMINOTRANSFERASE 6 U/L (12-78); ALBUMIN 2.3 g/dL (3.5-5.0); ASPARTATE AMINOTRANSFERASE 10 U/L (10-37); BILIRUBIN,TOTAL 0.1 mg/dL (0.2-1.0); CARBON DIOXIDE 28 mmol/L (21-32); CHLORIDE 102 mmol/L (101-111); GLOMERULAR FILTR. RATE CALC 84 mL/min (>60); GLUCOSE,RANDOM 337 mg/dL (70-105); POTASSIUM 3.5 mmol/L (3.5-5.1); SODIUM SERUM 135 mmol/L (136-145); TOTAL PROTEIN, SERUM 6.6 g/dL (6.0-8.3); UREA NITROGEN, BLOOD 12 mg/dL (7-18)
[2020-09-08] MEDS ORDERED: ZOSYN 3.375GM+NS 50ML 50 ML IV SCH ×2 (05:00→13:00)
[2020-09-08] MEDS ORDERED: INSULIN HUMULIN R 100 UNIT/ML 3ML ONE (05:36)
[2020-09-08] MEDS: LEVOTHYROXINE 100 MCG TABLET PO SCH (05:37)
[2020-09-08] MEDS: LEVOTHYROXINE 75 MCG TABLET PO SCH (05:37)
[2020-09-08] MEDS: INSULIN HUMULIN R 100 UNIT/ML 3ML SQ SCH ×4 (05:43→21:00)
[2020-09-08] MEDS: PANTOPRAZOLE SODIUM 40 MG TABLET.DR PO SCH (08:10)
[2020-09-08] MEDS: GABAPENTIN 300 MG CAPSULE PO SCH ×3 (08:10→21:29)
[2020-09-08] MEDS: ASPIRIN 81MG TAB.CHEW PO SCH (08:10)
[2020-09-08] MEDS: DOCUSATE SODIUM 100 MG CAP PO SCH (08:10)
[2020-09-08] MEDS: CLOPIDOGREL BISULFATE 75 MG TAB PO SCH (08:11)
[2020-09-08] MEDS: DULOXETINE HCL 30 MG CAP PO SCH (08:11)
[2020-09-08] MEDS ORDERED: FAMOTIDINE 20MG TAB 20 MG TAB PO SCH (09:00)
[2020-09-08] MEDS ORDERED: NON-FORMULARY MEDICATION 1 EACH (Levothyroxine Sodium 175 MCG) PO SCH (09:00)
[2020-09-08] MEDS ORDERED: RENAL DOSE IV SCH ×2 (09:15)
[2020-09-08] MEDS ORDERED: MORPHINE SULFATE 2 MG/ML 1ML SYG IVP PRN (10:15)
[2020-09-08] MEDS: INSULIN GLARGINE 100 UNITS/ML 10 ML VIAL SQ SCH (10:42)
--- NOTE | 2020-09-08 12:30 | NUR ---
DCP CM met with pt in room discussed dc plans. Pt needs assistance w/ADL's prior to admission, lives at home with mother and brother. Pt has a wheelchair, provider 5.5hrs/daily. Denies any other equipments/services. Pt made aware [facility] called verbalized that sister is arranging HH at home, informed company will ask patient first. As per pt, "NO, that is not the company we are working on, I want [facility] if I need HH as it is from [place] and I lives in [place]." Informed pt will wait for MD recommendations on closer to dc and pt is stable. Pt feels safe to go back home, family able to assist with transportation and needs, also pt verbalized he uses medical transport w/EMS if needed and when family unavailable. DC plan to home once stable. CM to continue to follow up. Addendum: 09/08/20 at 1235 by JONAS VALENZUELA LVN CM Amended: Links added.
[2020-09-08] MEDS ORDERED: COMPOUND IV REFRIGERATED 1 EACH IVSOLN MISC PRN (13:00)
[2020-09-08] MEDS ORDERED: VANCOMYCIN 1.5 GM in SODIUM CHLORIDE 0.9% 250 ML IV ONE ×2 (13:00→17:00)
[2020-09-08] MEDS ORDERED: HONEY 1 APPL/ML TUBE TP ONE (13:19)
[2020-09-08] MEDS: ZOSYN 3.375GM+NS 50ML 50 ML IV SCH (16:43)
[2020-09-08] MEDS ORDERED: VANCOMYCIN 750MG + NS 250 ML IV SCH ×2 (21:00)
[2020-09-08] MEDS: ONDANSETRON HCL 4 MG/2 ML VIAL IV PRN (21:32)
[2020-09-09] MEDS: ZOSYN 3.375GM+NS 50ML 50 ML IV SCH ×3 (01:49→17:55)
[2020-09-09] MEDS: VANCOMYCIN 750MG + NS 250 ML IV SCH ×6 (01:50→18:50)
[2020-09-09 03:48] VITALS: BP 111/75
[2020-09-09] MEDS: MORPHINE SULFATE 2 MG/ML 1ML SYG IV PRN ×5 (03:48→22:19)
[2020-09-09 05:54] LABS: BASOPHILS % (AUTO) 0.6 % (0.0-5.0); EOSINOPHILS % (AUTO) 3.9 % (0.0-8.0); HEMATOCRIT 28.3 % (42-54); LYMPHOCYTES % (AUTO) 24.1 % (21.0-51.0); MEAN CORPUSCULAR HEMOGLOBIN 28.1 pg (27.0-33.0); MEAN CORPUSCULAR HGB CONC 32.9 g/dL (32.0-36.0); MEAN CORPUSCULAR VOLUME 85.5 fL (79-99); MONOCYTES % (AUTO) 8.7 % (3.0-13.0); NEUTROPHILS % (AUTO) 62.5 % (40.0-77.0); PLATELET COUNT (AUTO) 274 K/uL (130-400); RED BLOOD CELL COUNT(AUTO) 3.31 MIL/uL (4.50-6.20); WHITE BLOOD COUNT (AUTO) 8.7 K/uL (4.8-10.8)
[2020-09-09 06:08] LABS: CREATININE 0.7 mg/dL (0.5-1.5); POTASSIUM 3.5 mmol/L (3.5-5.1)
[2020-09-09] MEDS: LEVOTHYROXINE 100 MCG TABLET PO SCH (06:30)
[2020-09-09] MEDS: INSULIN HUMULIN R 100 UNIT/ML 3ML SQ SCH ×6 (07:30→21:00)
[2020-09-09 07:56] VITALS: BP 131/79
[2020-09-09] MEDS: CLOPIDOGREL BISULFATE 75 MG TAB PO SCH (08:59)
[2020-09-09] MEDS: DULOXETINE HCL 30 MG CAP PO SCH (08:59)
[2020-09-09] MEDS: GABAPENTIN 300 MG CAPSULE PO SCH ×3 (08:59→20:52)
[2020-09-09] MEDS: LEVOTHYROXINE 75 MCG TABLET PO SCH (09:00)
[2020-09-09] MEDS: ASPIRIN 81MG TAB.CHEW PO SCH (09:00)
[2020-09-09] MEDS: PANTOPRAZOLE SODIUM 40 MG TABLET.DR PO SCH (09:01)
[2020-09-09] MEDS: DOCUSATE SODIUM 100 MG CAP PO SCH (09:01)
[2020-09-09] MEDS: INSULIN GLARGINE 100 UNITS/ML 10 ML VIAL SQ SCH (09:09)
[2020-09-09 11:33] VITALS: BP 124/82
--- NOTE | 2020-09-09 14:33 | NUR ---
DRESSING PT DRESSING CHANGED, CLEANED WITH NS, VASELINE GAUZE, 4X4, KERLIX.
[2020-09-09 15:50] VITALS: BP 122/84
--- NOTE | 2020-09-09 16:29 | NUR ---
CM Note: Insurance Denial CM informed Dr Flex Benedict. [employer] denied inpatient as patient has used his days. No p2p or appeal process can be done, denial team will send letter. As per Jak pt not ready to DC, have severe wound infection to stump, cultures have also been sent, he will update notes as well. Sravanthi Jeffrey RNCCM Director made aware. CM to continue to follow up.
[2020-09-09 20:00] VITALS: BP 109/73
[2020-09-09 23:42] VITALS: BP 127/79
[2020-09-10] MEDS: VANCOMYCIN 750MG + NS 250 ML IV SCH ×6 (01:56→16:46)
[2020-09-10] MEDS: ZOSYN 3.375GM+NS 50ML 50 ML IV SCH ×3 (01:56→16:45)
[2020-09-10] MEDS: ONDANSETRON HCL 4 MG/2 ML VIAL IV PRN (02:20)
[2020-09-10] MEDS: MORPHINE SULFATE 2 MG/ML 1ML SYG IV PRN ×5 (02:20→20:34)
[2020-09-10 04:00] VITALS: BP 117/78
[2020-09-10 05:56] LABS: BASOPHILS % (AUTO) 0.5 % (0.0-5.0); EOSINOPHILS % (AUTO) 5.4 % (0.0-8.0); HEMATOCRIT 28.5 % (42-54); LYMPHOCYTES % (AUTO) 33.7 % (21.0-51.0); MEAN CORPUSCULAR HEMOGLOBIN 27.4 pg (27.0-33.0); MEAN CORPUSCULAR HGB CONC 32.3 g/dL (32.0-36.0); MEAN CORPUSCULAR VOLUME 84.8 fL (79-99); MONOCYTES % (AUTO) 8.4 % (3.0-13.0); NEUTROPHILS % (AUTO) 51.7 % (40.0-77.0); PLATELET COUNT (AUTO) 280 K/uL (130-400); RED BLOOD CELL COUNT(AUTO) 3.36 MIL/uL (4.50-6.20); RED CELL DISTRIBUTION WIDTH 13.7 % (11.0-15.5); WHITE BLOOD COUNT (AUTO) 7.6 K/uL (4.8-10.8)
[2020-09-10 06:09] LABS: CARBON DIOXIDE 31 mmol/L (21-32); CHLORIDE 101 mmol/L (101-111); CREATININE 0.7 mg/dL (0.5-1.5); GLOMERULAR FILTR. RATE CALC 127 mL/min (>60); GLUCOSE,RANDOM 105 mg/dL (70-105); POTASSIUM 3.7 mmol/L (3.5-5.1); SODIUM SERUM 136 mmol/L (136-145); UREA NITROGEN, BLOOD 11 mg/dL (7-18)
[2020-09-10] MEDS: INSULIN HUMULIN R 100 UNIT/ML 3ML SQ SCH ×7 (07:30→20:35)
[2020-09-10 08:00] VITALS: BP 126/81
[2020-09-10] MEDS: LEVOTHYROXINE 100 MCG TABLET PO SCH (08:09)
[2020-09-10] MEDS: LEVOTHYROXINE 75 MCG TABLET PO SCH (08:09)
[2020-09-10] MEDS: DULOXETINE HCL 30 MG CAP PO SCH (08:36)
[2020-09-10] MEDS: CLOPIDOGREL BISULFATE 75 MG TAB PO SCH (08:36)
[2020-09-10] MEDS: ASPIRIN 81MG TAB.CHEW PO SCH (08:36)
[2020-09-10] MEDS: PANTOPRAZOLE SODIUM 40 MG TABLET.DR PO SCH (08:36)
[2020-09-10] MEDS: GABAPENTIN 300 MG CAPSULE PO SCH ×3 (08:37→20:31)
[2020-09-10] MEDS: INSULIN GLARGINE 100 UNITS/ML 10 ML VIAL SQ SCH (08:47)
[2020-09-10] MEDS: DOCUSATE SODIUM 100 MG CAP PO SCH (08:47)
[2020-09-10 11:00] VITALS: BP 120/75
[2020-09-10 16:00] VITALS: BP 107/70
[2020-09-10 19:31] VITALS: BP 121/90
[2020-09-11] VITALS (7 sets, daily range): BP systolic 105–129; BP diastolic 71–95
[2020-09-11] MEDS: MORPHINE SULFATE 2 MG/ML 1ML SYG IV PRN ×6 (01:26→18:58)
[2020-09-11] MEDS: ZOSYN 3.375GM+NS 50ML 50 ML IV SCH ×3 (01:55→17:17)
[2020-09-11] MEDS: VANCOMYCIN 750MG + NS 250 ML IV SCH ×6 (01:56→17:17)
[2020-09-11 06:09] LABS: BASOPHILS % (AUTO) 0.4 % (0.0-5.0); EOSINOPHILS % (AUTO) 5.4 % (0.0-8.0); HEMATOCRIT 27.5 % (42-54); LYMPHOCYTES % (AUTO) 33.5 % (21.0-51.0); MEAN CORPUSCULAR HEMOGLOBIN 27.5 pg (27.0-33.0); MEAN CORPUSCULAR VOLUME 85.9 fL (79-99); MONOCYTES % (AUTO) 8.5 % (3.0-13.0); PLATELET COUNT (AUTO) 278 K/uL (130-400); RED CELL DISTRIBUTION WIDTH 13.7 % (11.0-15.5); WHITE BLOOD COUNT (AUTO) 8.9 K/uL (4.8-10.8)
[2020-09-11 06:28] LABS: CARBON DIOXIDE 33 mmol/L (21-32); CHLORIDE 101 mmol/L (101-111); CREATININE 0.9 mg/dL (0.5-1.5); GLOMERULAR FILTR. RATE CALC 95 mL/min (>60); GLUCOSE,RANDOM 198 mg/dL (70-105); POTASSIUM 3.9 mmol/L (3.5-5.1); SODIUM SERUM 136 mmol/L (136-145); UREA NITROGEN, BLOOD 13 mg/dL (7-18)
[2020-09-11] MEDS: LEVOTHYROXINE 75 MCG TABLET PO SCH (07:04)
[2020-09-11] MEDS: LEVOTHYROXINE 100 MCG TABLET PO SCH (07:04)
[2020-09-11] MEDS: INSULIN HUMULIN R 100 UNIT/ML 3ML SQ SCH ×7 (07:11→21:00)
[2020-09-11] MEDS: DOCUSATE SODIUM 100 MG CAP PO SCH (08:55)
[2020-09-11] MEDS: CLOPIDOGREL BISULFATE 75 MG TAB PO SCH (08:55)
[2020-09-11] MEDS: PANTOPRAZOLE SODIUM 40 MG TABLET.DR PO SCH (08:55)
[2020-09-11] MEDS: GABAPENTIN 300 MG CAPSULE PO SCH ×3 (08:55→19:54)
[2020-09-11] MEDS: DULOXETINE HCL 30 MG CAP PO SCH (08:55)
[2020-09-11] MEDS: ASPIRIN 81MG TAB.CHEW PO SCH (08:55)
[2020-09-11] MEDS: INSULIN GLARGINE 100 UNITS/ML 10 ML VIAL SQ SCH (09:30)
[2020-09-11] MEDS ORDERED: KETOROLAC TROMETHAMINE 15MG/ML IV PRN (12:00)
--- NOTE | 2020-09-11 14:22 | NUR ---
DC PLAN PER NURSE SAID PATIENT SAID NOT ONE TO HELP UNTIL TUESDAY. SAID PATIENT STILL RECEIVING PAIN MEDICATION. ASKED NURSE TO ASK MD TO CHANGE TO PO MEDS FOR PLAN TO DC EITHER HOME OR TO FACILITY. CHANGED FROM 4 HRS TO 6HRS. Addendum: 09/11/20 at 1426 by LAUREN HURLEY RN CM Amended: Links added.
[2020-09-11] MEDS ORDERED: KETOROLAC TROMETHAMINE 30MG/ML ONE ×2 (17:05→22:58)
[2020-09-11] MEDS: TRAMADOL HCL 50 MG TABLET PO PRN (20:26)
[2020-09-12] MEDS: VANCOMYCIN 750MG + NS 250 ML IV SCH ×6 (01:05→18:02)
[2020-09-12] MEDS: ZOSYN 3.375GM+NS 50ML 50 ML IV SCH ×3 (01:05→16:42)
[2020-09-12] MEDS: MORPHINE SULFATE 2 MG/ML 1ML SYG IV PRN ×4 (01:06→19:57)
[2020-09-12] MEDS: TRAMADOL HCL 50 MG TABLET PO PRN ×2 (02:21→23:35)
[2020-09-12 04:00] VITALS: BP 134/86
[2020-09-12] MEDS ORDERED: KETOROLAC TROMETHAMINE 30MG/ML ONE (05:04)
[2020-09-12 05:07] LABS: BASOPHILS % (AUTO) 0.8 % (0.0-5.0); EOSINOPHILS % (AUTO) 5.9 % (0.0-8.0); HEMATOCRIT 28.1 % (42-54); LYMPHOCYTES % (AUTO) 42.2 % (21.0-51.0); MEAN CORPUSCULAR HEMOGLOBIN 27.6 pg (27.0-33.0); MEAN CORPUSCULAR HGB CONC 31.7 g/dL (32.0-36.0); MONOCYTES % (AUTO) 8.7 % (3.0-13.0); NEUTROPHILS % (AUTO) 42.1 % (40.0-77.0); PLATELET COUNT (AUTO) 296 K/uL (130-400); RED BLOOD CELL COUNT(AUTO) 3.23 MIL/uL (4.50-6.20); RED CELL DISTRIBUTION WIDTH 13.6 % (11.0-15.5); WHITE BLOOD COUNT (AUTO) 7.2 K/uL (4.8-10.8)
[2020-09-12 05:30] LABS: CREATININE 0.9 mg/dL (0.5-1.5); POTASSIUM 4.2 mmol/L (3.5-5.1)
[2020-09-12] MEDS: LEVOTHYROXINE 100 MCG TABLET PO SCH (05:31)
[2020-09-12] MEDS: LEVOTHYROXINE 75 MCG TABLET PO SCH (05:31)
[2020-09-12] MEDS: INSULIN HUMULIN R 100 UNIT/ML 3ML SQ SCH ×7 (06:30→21:00)
[2020-09-12 08:00] VITALS: BP 105/79
[2020-09-12] MEDS: INSULIN GLARGINE 100 UNITS/ML 10 ML VIAL SQ SCH ×2 (08:40→09:00)
[2020-09-12] MEDS: DOCUSATE SODIUM 100 MG CAP PO SCH (08:43)
[2020-09-12] MEDS: ASPIRIN 81MG TAB.CHEW PO SCH (08:43)
[2020-09-12] MEDS: DULOXETINE HCL 30 MG CAP PO SCH (08:44)
[2020-09-12] MEDS: GABAPENTIN 300 MG CAPSULE PO SCH ×3 (08:45→19:56)
[2020-09-12] MEDS: PANTOPRAZOLE SODIUM 40 MG TABLET.DR PO SCH (08:45)
[2020-09-12] MEDS: CLOPIDOGREL BISULFATE 75 MG TAB PO SCH (08:45)
--- NOTE | 2020-09-12 11:00 | NUR ---
PAIN complain of pain toes and feet morphine 2 mg iv given co dizziness, ,heart rate increased discussed with pt in [place]awk written due to hard of hearing with nursing home social worker
[2020-09-12 11:43] VITALS: BP 117/79
[2020-09-12 16:00] VITALS: BP 118/72
[2020-09-12] MEDS: KETOROLAC TROMETHAMINE 30MG/ML IV PRN (16:30)
[2020-09-12 19:56] VITALS: BP 125/73
[2020-09-12 23:35] VITALS: BP 131/84
[2020-09-13] MEDS: VANCOMYCIN 750MG + NS 250 ML IV SCH ×6 (00:44→16:41)
[2020-09-13] MEDS: ZOSYN 3.375GM+NS 50ML 50 ML IV SCH ×4 (00:44→18:59)
[2020-09-13] MEDS: MORPHINE SULFATE 2 MG/ML 1ML SYG IV PRN ×4 (01:30→18:57)
[2020-09-13 03:26] VITALS: BP 132/84
[2020-09-13] MEDS: LEVOTHYROXINE 75 MCG TABLET PO SCH (05:31)
[2020-09-13] MEDS: LEVOTHYROXINE 100 MCG TABLET PO SCH (05:31)
[2020-09-13] MEDS: INSULIN HUMULIN R 100 UNIT/ML 3ML SQ SCH ×7 (05:33→21:19)
[2020-09-13 06:18] LABS: BASOPHILS % (AUTO) 0.6 % (0.0-5.0); EOSINOPHILS % (AUTO) 5.4 % (0.0-8.0); HEMATOCRIT 31.2 % (42-54); LYMPHOCYTES % (AUTO) 39.1 % (21.0-51.0); MEAN CORPUSCULAR HEMOGLOBIN 27.1 pg (27.0-33.0); MEAN CORPUSCULAR HGB CONC 31.7 g/dL (32.0-36.0); MEAN CORPUSCULAR VOLUME 85.5 fL (79-99); MONOCYTES % (AUTO) 8.9 % (3.0-13.0); NEUTROPHILS % (AUTO) 45.6 % (40.0-77.0); PLATELET COUNT (AUTO) 334 K/uL (130-400); RED BLOOD CELL COUNT(AUTO) 3.65 MIL/uL (4.50-6.20); RED CELL DISTRIBUTION WIDTH 13.6 % (11.0-15.5); WHITE BLOOD COUNT (AUTO) 7.9 K/uL (4.8-10.8)
[2020-09-13 06:25] LABS: CREATININE 0.8 mg/dL (0.5-1.5); POTASSIUM 4.6 mmol/L (3.5-5.1)
[2020-09-13 08:00] VITALS: BP 124/79
[2020-09-13] MEDS: CLOPIDOGREL BISULFATE 75 MG TAB PO SCH (08:19)
[2020-09-13] MEDS: ASPIRIN 81MG TAB.CHEW PO SCH (08:20)
[2020-09-13] MEDS: DOCUSATE SODIUM 100 MG CAP PO SCH (08:20)
[2020-09-13] MEDS: GABAPENTIN 300 MG CAPSULE PO SCH ×3 (08:21→21:17)
[2020-09-13] MEDS: DULOXETINE HCL 30 MG CAP PO SCH (08:21)
[2020-09-13] MEDS: PANTOPRAZOLE SODIUM 40 MG TABLET.DR PO SCH (08:22)
[2020-09-13] MEDS: TRAMADOL HCL 50 MG TABLET PO PRN ×2 (08:23→16:42)
[2020-09-13] MEDS: INSULIN GLARGINE 100 UNITS/ML 10 ML VIAL SQ SCH (09:46)
[2020-09-13] MEDS: KETOROLAC TROMETHAMINE 30MG/ML IV PRN ×2 (11:16→21:45)
[2020-09-13 11:17] VITALS: BP 129/85
[2020-09-13] MEDS ORDERED: HONEY 1 APPL/ML TUBE TP SCH (14:00)
[2020-09-13 16:00] VITALS: BP 133/84
[2020-09-13] MEDS ORDERED: COMPOUND IV MISC 1 EACH IVSOLN MISC PRN (16:45)
--- NOTE | 2020-09-13 17:16 | NUR ---
CM NOTe referral faxed to [facility], phone [phone] and fax [phone].spoke to rosalio rios nurse flotation tender helper and states will need to verify insurance but should be able to accept pt. pt has been with them before. updated dr Benedict.
[2020-09-13 20:31] VITALS: BP 130/79
[2020-09-13] MEDS: IRON SUCROSE COMPLEX 100 MG in SODIUM CHLORIDE 0.9% 50 ML IV SCH (21:16)
[2020-09-13 23:42] VITALS: BP 146/75
[2020-09-14] MEDS: ZOSYN 3.375GM+NS 50ML 50 ML IV SCH ×3 (01:16→17:23)
[2020-09-14] MEDS: MORPHINE SULFATE 2 MG/ML 1ML SYG IV PRN ×2 (01:23→06:51)
[2020-09-14] MEDS: VANCOMYCIN 750MG + NS 250 ML IV SCH ×4 (01:28→09:45)
[2020-09-14 04:27] VITALS: BP 134/71
[2020-09-14 05:50] LABS: CREATININE 0.9 mg/dL (0.5-1.5); POTASSIUM 4.3 mmol/L (3.5-5.1)
[2020-09-14] MEDS: LEVOTHYROXINE 100 MCG TABLET PO SCH (06:51)
[2020-09-14] MEDS: LEVOTHYROXINE 75 MCG TABLET PO SCH (06:51)
[2020-09-14] MEDS: INSULIN HUMULIN R 100 UNIT/ML 3ML SQ SCH ×7 (07:01→20:33)
--- NOTE | 2020-09-14 07:45 | NUR ---
DR UREÑA spoke with pt about pain medications he would change his pain medication and try to start weaning off morphine iv see if he can wait every 8 hours instead of every 6 hours ,pt became angry and stated he did not want any of his medications for the am explained to pt did not change med orders
[2020-09-14 08:00] VITALS: BP 125/78
[2020-09-14] MEDS: INSULIN GLARGINE 100 UNITS/ML 10 ML VIAL SQ SCH ×2 (08:12→09:00)
[2020-09-14] MEDS: ASPIRIN 81MG TAB.CHEW PO SCH (09:46)
[2020-09-14] MEDS: DOCUSATE SODIUM 100 MG CAP PO SCH (09:49)
[2020-09-14] MEDS: DULOXETINE HCL 30 MG CAP PO SCH (09:50)
[2020-09-14] MEDS: CLOPIDOGREL BISULFATE 75 MG TAB PO SCH (09:51)
[2020-09-14] MEDS: GABAPENTIN 300 MG CAPSULE PO SCH ×3 (09:51→20:25)
[2020-09-14] MEDS: PANTOPRAZOLE SODIUM 40 MG TABLET.DR PO SCH (09:51)
[2020-09-14] MEDS: HYDROCODONE/ACETAMINOPHEN 5/325 MG TAB PO PRN ×2 (11:37→18:03)
[2020-09-14] MEDS ORDERED: MORPHINE SULFATE 2 MG/ML 1ML SYG IVP PRN (13:45)
[2020-09-14] MEDS ORDERED: MORPHINE SULFATE 2 MG/ML 1ML SYG ONE (13:49)
[2020-09-14 16:29] VITALS: BP 132/89
[2020-09-14] MEDS: IRON SUCROSE COMPLEX 100 MG in SODIUM CHLORIDE 0.9% 50 ML IV SCH (20:25)
[2020-09-14] MEDS: VANCOMYCIN 1GM+NS 250ML 250 ML IV SCH (20:26)
[2020-09-14] MEDS: MORPHINE SULFATE 2 MG/ML 1ML SYG IVP PRN (20:32)
[2020-09-14 20:51] VITALS: BP 132/83
[2020-09-14 23:55] VITALS: BP 122/76
[2020-09-15] MEDS: ZOSYN 3.375GM+NS 50ML 50 ML IV SCH ×3 (01:58→17:11)
[2020-09-15] MEDS: MORPHINE SULFATE 2 MG/ML 1ML SYG IVP PRN ×4 (01:58→21:13)
[2020-09-15 04:58] VITALS: BP 122/76
[2020-09-15] MEDS: INSULIN HUMULIN R 100 UNIT/ML 3ML SQ SCH ×7 (06:03→21:22)
[2020-09-15] MEDS: LEVOTHYROXINE 75 MCG TABLET PO SCH (06:28)
[2020-09-15] MEDS: LEVOTHYROXINE 100 MCG TABLET PO SCH (06:28)
[2020-09-15] MEDS: HYDROCODONE/ACETAMINOPHEN 5/325 MG TAB PO PRN ×3 (06:28→23:15)
[2020-09-15 06:46] LABS: CREATININE 0.8 mg/dL (0.5-1.5)
[2020-09-15 08:00] VITALS: BP 111/74
[2020-09-15] MEDS: VANCOMYCIN 1GM+NS 250ML 250 ML IV SCH ×2 (09:19→21:15)
[2020-09-15] MEDS: DOCUSATE SODIUM 100 MG CAP PO SCH (09:21)
[2020-09-15] MEDS: PANTOPRAZOLE SODIUM 40 MG TABLET.DR PO SCH (09:22)
[2020-09-15] MEDS: ASPIRIN 81MG TAB.CHEW PO SCH (09:22)
[2020-09-15] MEDS: GABAPENTIN 300 MG CAPSULE PO SCH ×3 (09:22→21:16)
[2020-09-15] MEDS: CLOPIDOGREL BISULFATE 75 MG TAB PO SCH (09:22)
[2020-09-15] MEDS: DULOXETINE HCL 30 MG CAP PO SCH (09:23)
[2020-09-15] MEDS: INSULIN GLARGINE 100 UNITS/ML 10 ML VIAL SQ SCH (09:44)
[2020-09-15 11:30] VITALS: BP 126/78
--- NOTE | 2020-09-15 13:27 | NUR ---
CM NOTE/[facility] PER MIHAELA AT [facility], CLINICAL PACKET RECEIVED. I NOTIFIED I JUST FAXED PT EVAL AND NOTES. PER MIHAELA, WILL REVIEW AND CALL ME BACK IF PATIENT IS APPROVED. CM TO FOLLOW UP.
[2020-09-15 16:00] VITALS: BP 136/91
[2020-09-15 19:50] VITALS: BP 132/80
[2020-09-15] MEDS: IRON SUCROSE COMPLEX 100 MG in SODIUM CHLORIDE 0.9% 50 ML IV SCH (23:16)
[2020-09-16] VITALS (7 sets, daily range): BP systolic 114–136; BP diastolic 75–85
[2020-09-16] MEDS: ZOSYN 3.375GM+NS 50ML 50 ML IV SCH ×3 (03:11→17:34)
[2020-09-16] MEDS: MORPHINE SULFATE 2 MG/ML 1ML SYG IVP PRN ×4 (03:11→21:58)
[2020-09-16 03:32] LABS: HEMATOCRIT 29.5 % (42-54); MEAN CORPUSCULAR HEMOGLOBIN 27.5 pg (27.0-33.0); MEAN CORPUSCULAR HGB CONC 31.9 g/dL (32.0-36.0); MEAN CORPUSCULAR VOLUME 86.3 fL (79-99); RED BLOOD CELL COUNT(AUTO) 3.42 MIL/uL (4.50-6.20); RED CELL DISTRIBUTION WIDTH 14.1 % (11.0-15.5); WHITE BLOOD COUNT (AUTO) 8.4 K/uL (4.8-10.8)
[2020-09-16 03:40] LABS: HEMOGLOBIN A1C 10.5 % (4.0-6.0)
[2020-09-16 03:44] LABS: CARBON DIOXIDE 32 mmol/L (21-32); CHLORIDE 101 mmol/L (101-111); CREATININE 0.9 mg/dL (0.5-1.5); GLOMERULAR FILTR. RATE CALC 95 mL/min (>60); GLUCOSE,RANDOM 206 mg/dL (70-105); POTASSIUM 4.5 mmol/L (3.5-5.1); SODIUM SERUM 139 mmol/L (136-145); UREA NITROGEN, BLOOD 13 mg/dL (7-18)
[2020-09-16] MEDS: LEVOTHYROXINE 75 MCG TABLET PO SCH (04:37)
[2020-09-16] MEDS: LEVOTHYROXINE 100 MCG TABLET PO SCH (04:37)
[2020-09-16] MEDS: HYDROCODONE/ACETAMINOPHEN 5/325 MG TAB PO PRN ×2 (04:38→18:05)
[2020-09-16] MEDS: INSULIN HUMULIN R 100 UNIT/ML 3ML SQ SCH ×7 (06:41→22:05)
[2020-09-16] MEDS: INSULIN GLARGINE 100 UNITS/ML 10 ML VIAL SQ SCH (10:35)
[2020-09-16] MEDS: ASPIRIN 81MG TAB.CHEW PO SCH (10:37)
[2020-09-16] MEDS: DOCUSATE SODIUM 100 MG CAP PO SCH (10:37)
[2020-09-16] MEDS: PANTOPRAZOLE SODIUM 40 MG TABLET.DR PO SCH (10:37)
[2020-09-16] MEDS: CLOPIDOGREL BISULFATE 75 MG TAB PO SCH (10:37)
[2020-09-16] MEDS: DULOXETINE HCL 30 MG CAP PO SCH (10:37)
[2020-09-16] MEDS: GABAPENTIN 300 MG CAPSULE PO SCH ×3 (10:43→21:57)
[2020-09-16] MEDS: VANCOMYCIN 1GM+NS 250ML 250 ML IV SCH (12:41)
--- NOTE | 2020-09-16 13:44 | NUR ---
RD NOTIFICATION Pt admitted due to post/op wound infection. Pt left AMA 08/19/20. RD screen due to LOS X8 days. Pt has hx of bilateral BKA. ADJUSTED IBW: 57 KG, ADJUSTED BMI: 24.1 Pt is currently on a heart healthy diet with a 75 gm cc modifier with Maynor supplement BID as well as Glucerna BID. As per EMR 100% po intake RD RECOMMENDATION Continue current diet order. Monitor ONS intake When medically feasible, consider vitamin c to aid in wound healing. Pt may benefit from MVI. RD will continue to follow LABS: ALB 2.3, A1C 10.5, BG 163, CREAT 0.9, GFR 95, NA 139, HGB 9.4 Addendum: 09/16/20 at [address] Amended: Links added.
--- NOTE | 2020-09-16 15:22 | NUR ---
CM NOTE/WOUND CARE PER EVETTE CULP RN, CM DIRECTOR, MEETING HELD WITH DR. MOORE AND PATIENT CARE WAS DISCUSSED. PLAN IF FOR WOUND VAC TO BE ORDERED BY [facility] HEALING TELEPHONE SALES AGENT, ANNIE NAVA RN. PATIENT TO GO HOME WITH WET TO DRY DRESSING AND [facility]. PRIMARY NURSE, NANDINI PACKER, AWARE OF PLAN. DR. MOORE TO DISCHARGED PATIENT HOME TODAY.
--- NOTE | 2020-09-16 17:00 | NUR ---
PER MD ORDERS REMOVED WOUND VAC FROM LEFT BKA WOUND, CLEANSED WOUND SITE WITH SALINE AND APPLIED WET TO DRY DRESSING ORDERED. WOUND PICTURES TAKEN, PLACE IN CHART. WOUND MEASUREMENTS: L-3.0cm X W-11.0cm X D-0.5cm. ANNIE NAVA- WOUND AUTOMOBILE MECHANIC HELPER MADE AWARE OF LET BKA WOUND MEASUREMENTS, STATED THAT SOMEONE FROM [facility]OUND GET A HOLD OF THE PT FOR FOLLOW UP APPOINTMENT WITH DR PONCE FOR WOUND VAC PLACEMENT. PT CELL PHONE UPDATED [phone].
--- NOTE | 2020-09-16 17:49 | NUR ---
CM NOTE PRIOR AUTH REQUEST FAXED TO [facility] FOR NON-EMERGENT EMS TRANSFER. PRIMARY NURSE, NANDINI PACKER, AWARE.
[2020-09-16] MEDS ORDERED: DOXY100C2 PO (18:02)
[2020-09-16] MEDS ORDERED: INSU3INS3 SQ (18:02)
[2020-09-16] MEDS ORDERED: AMOX-429 PO (18:02)
[2020-09-16] MEDS ORDERED: SYRI-1628 MC (18:02)
[2020-09-16] MEDS ORDERED: INSU100I3 SQ (18:02)
--- NOTE | 2020-09-16 20:30 | NUR ---
EMS CALLED FOR PT TRANSFER HOME, PENDING PICK-UP.
--- NOTE | 2020-09-16 21:05 | NUR ---
CALLED REPORT TO GUMARO DIAZ RN AT [facility]. SHE WAS MADE AWARE OF PT NEW MEDICATIONS PRESCRIBED BY MD AND ON FOLLOW UP APPOINTMENTS NEEDED FOR DR HENNING, DR STEWART, PCP, AND AND DR PONCE FOR WOUND VAC PLACEMENT. PHONE NUMBERS PROVIDED IN DISCHARGE INSTRUCTION AND INSTRUCTED BIRDIE NAIK TO CALL OFFICES TO SCHEDULE APPOINTMENTS. SHE STATED UNDERSTAND AND WOUND HELP HIM SET UP APPOINTMENT TOMORROW. BIRDIE NAIK WAS ADVISED PT IS RETURNING HOME WITH WET TO DRY DRESSING TO LEFT BKA ORDERED BY MD AND TO FOLLOW UP FOR WOUND VAC PLACEMENT, INFORMED HER AND PT THAT SOME ONE WOUND BE CALLING THEM FOR APPT AND IF NOT THE [facility] CASE MANAGER A COURTESY CALL TOMORROW BEFORE 5 PM, PHONE NUMBER PROVIDED. PER MD ORDER PT IS BEING DC'D HOME WITH [facility]. PT WAS INSTRUCTED ON NEW MEDICATION PRESCRIBED BY . AND ON DRESSING TO LEFT BKA. PT WAS ALSO INSTRUCTED ON THE IMPORTANCE OF KEEPING UP WITH F/U APPOINTMENTS, PT STATED UNDERSTAND IND THAT HE WAS GOING TO MAKE IT TO ALL APPTS. IN CASE OF AN EMERGENCY PT WAS INSTRUCTED TO RETURN TO ER OR TO CALL 911. STATES UNDERSTANDING. PT HAD NO QUESTIONS AT THIS TIME. PENDING EMS FOR TRANSFER HOME. PT CALLED BROTHER AND TO ADVICE HIM HE WOUND BE COMING HOME.
--- NOTE | 2020-09-17 01:09 | NUR ---
NOTE EMS STAFF HERE TO TRANSPORT PATIENT HOME. PACKED UP BELONGING INCLUDING HIS GLASSES AND CELLPHONE/RAILWAY HEAD TENDER.
== END 2020-09-17 01:09 | disposition home health service (06) | DRG 349 ==
LOC: 3CH 09-08 00:16
PROVIDERS: ADMIT Internal Medicine; ATTEND Internal Medicine
DX: T87.44 Infection of amputation stump, left lower extremity (principal); T87.81 Dehiscence of amputation stump; N18.6 End stage renal disease; L03.116 Cellulitis of left lower limb; E11.65 Type 2 diabetes mellitus with hyperglycemia; E03.9 Hypothyroidism, unspecified; E11.22 Type 2 diabetes mellitus with diabetic chronic kidney disease; E11.40 Type 2 diabetes mellitus with diabetic neuropathy, unspecified; B87.9 Myiasis, unspecified; G89.29 Other chronic pain; D64.9 Anemia, unspecified; K21.9 Gastro-esophageal reflux disease without esophagitis; I12.0 Hypertensive chronic kidney disease with stage 5 chronic kidney disease or end stage renal disease; E11.51 Type 2 diabetes mellitus with diabetic peripheral angiopathy without gangrene; E88.09 Other disorders of plasma-protein metabolism, not elsewhere classified; E46 Unspecified protein-calorie malnutrition; L97.929 Non-pressure chronic ulcer of unspecified part of left lower leg with unspecified severity; E11.621 Type 2 diabetes mellitus with foot ulcer; E78.5 Hyperlipidemia, unspecified; B95.62 Methicillin resistant Staphylococcus aureus infection as the cause of diseases classified elsewhere; B96.4 Proteus (mirabilis) (morganii) as the cause of diseases classified elsewhere; R59.0 Localized enlarged lymph nodes; L54 Erythema in diseases classified elsewhere; Y83.5 Amputation of limb(s) as the cause of abnormal reaction of the patient, or of later complication, without mention of misadventure at the time of the procedure; Z68.21 Body mass index [BMI] 21.0-21.9, adult; Y92.89 Other specified places as the place of occurrence of the external cause; Z89.612 Acquired absence of left leg above knee; Z89.022 Acquired absence of left finger(s); Z89.021 Acquired absence of right finger(s); Z89.511 Acquired absence of right leg below knee; Z79.4 Long term (current) use of insulin; Z74.01 Bed confinement status; Z91.14 Patient's other noncompliance with medication regimen; Z91.19 Patient's noncompliance with other medical treatment and regimen
CPT/HCPCS: 36415; 71045; 73700; 80048; 80053; 80202; 82550; 82948; 83036; 83605; 83735; 84145; 85025; 85027; 85651; 86140; 87040; 87070; 87076; 87077; 87088; 87186; G0378; J1756; J1815; J1885; J2405; J2543; J3370; J7050

== ENCOUNTER 2020-12-01 22:50 | Emergency (ER) | payer MEDICAID ==
[~2020-12-01 22:50] MED LIST changes: +AMOX-429 PO; +DOXY100C2 PO; +INSU100I3 SQ; +INSU3INS3 SQ; +SYRI-1628 MC
[2020-12-01 23:17] LABS: BASOPHILS % (AUTO) 0.7 % (0.0-5.0); EOSINOPHILS % (AUTO) 4.4 % (0.0-8.0); HEMATOCRIT 29.8 % (42-54); LYMPHOCYTES % (AUTO) 30.7 % (21.0-51.0); MEAN CORPUSCULAR HEMOGLOBIN 27.8 pg (27.0-33.0); MEAN CORPUSCULAR HGB CONC 32.9 g/dL (32.0-36.0); MEAN CORPUSCULAR VOLUME 84.7 fL (79-99); NEUTROPHILS % (AUTO) 57.1 % (40.0-77.0); PLATELET COUNT (AUTO) 272 K/uL (130-400); RED BLOOD CELL COUNT(AUTO) 3.52 MIL/uL (4.50-6.20); RED CELL DISTRIBUTION WIDTH 14.4 % (11.0-15.5); WHITE BLOOD COUNT (AUTO) 8.1 K/uL (4.8-10.8)
[2020-12-01 23:30] LABS: ALBUMIN 2.8 g/dL (3.5-5.0); BILIRUBIN,TOTAL 0.1 mg/dL (0.2-1.0); CREATININE 1.2 mg/dL (0.5-1.5); POTASSIUM 4.2 mmol/L (3.5-5.1); TOTAL PROTEIN, SERUM 7.4 g/dL (6.0-8.3)
[2020-12-01 23:39] LABS: B-TYPE NATRIURETIC PEPTIDE 32 pg/mL (0-100)
[2020-12-01] MEDS ORDERED: SODIUM CHLORIDE 0.9% 1000ML 2,000 ML IV ONE (23:43)
[2020-12-01] MEDS ORDERED: INSULIN HUMULIN R 100 UNIT/ML 3ML ONE (23:43)
[2020-12-01 23:54] LABS: APPEARANCE,URINE Clear (CLEAR); BILIRUBIN,URINE Negative (NEGATIVE); COLOR,URINE Yellow (YELLOW); GLUCOSE, URINE (UA) >=1000 mg/dL (NEGATIVE); KETONES,URINE Negative (NEGATIVE); LEUKOCYTE ESTERASE ,URINE Negative (NEGATIVE); NITRATE,URINE Negative (NEGATIVE); OCCULT BLOOD,URINE Negative (NEGATIVE); PROTEIN,URINE POS 2+ mg/dL (NEGATIVE); UROBILINOGEN,URINE 0.2 mg/dL (0.2-1.0)
[2020-12-02 00:15] LABS: BACTERIA,URINE None Seen /HPF (None Seen); MUCUS,URINE Moderate LPF (None Seen); RBC,URINE None Seen /HPF (0-1); SQUAMOUS EPITHELIAL CELL,UR Moderate /HPF (0-2); WBC,URINE None Seen /HPF (0-1)
[2020-12-02] MEDS ORDERED: KETOROLAC TROMETHAMINE 30MG/ML ONE (00:57)
[2020-12-02] MEDS ORDERED: ORPHENADRINE CITRATE 30 MG/ML ML ONE (00:57)
[2020-12-02] MEDS ORDERED: INSULIN HUMULIN R 100 UNIT/ML 3ML ONE (01:16)
== END 2020-12-02 11:16 | disposition home or self-care (01) ==
LOC: EDH 22:50
DX: E11.65 Type 2 diabetes mellitus with hyperglycemia (principal); E86.0 Dehydration; R53.83 Other fatigue; R53.81 Other malaise; I12.9 Hypertensive chronic kidney disease with stage 1 through stage 4 chronic kidney disease, or unspecified chronic kidney disease; E11.22 Type 2 diabetes mellitus with diabetic chronic kidney disease; N18.9 Chronic kidney disease, unspecified; E11.40 Type 2 diabetes mellitus with diabetic neuropathy, unspecified; Z20.822 Contact with and (suspected) exposure to COVID-19
CPT/HCPCS: 36415 ×2; 71045; 80053; 81001; 82010; 82550; 82948 ×2; 83605 ×2; 83690; 83880; 84484; 85025; 87040 ×2; 87426; 93005; 96361 ×2; 96372; 96374; 96375; 99285; C9803; J1815 ×2; J1885; J2360; J7030; U0003